=== PATIENT | male | born 1970 | race Caucasian/White ===

== ENCOUNTER 2017-06-25 14:32 | Emergency (ER) | payer BC, OTHER ==
[2017-06-25 15:22] VITALS: BP 140/92
--- NOTE | 2017-06-25 15:40 | UC ---
Back Pain HPI - HPI Summary HPI Summary: 46 y/o male presents to the urgent care c/o lower back pain after moving a cart this last Sunday06/23/2017. Pain is 6/10 at rest and 9/10 with movement, it radiates to the LF lateral side of his hip. Pt took a Meloxicam PO and Aleve PO this morning to alleviate symptoms. Pt denies numbness or tingling over his lower extremities, fecal or urinary incontinence, saddle anesthesia. fever, SOB , chest pain, N/V/D. Pt states he had similar symptoms a couple of years ago, but symptoms resolved. - History of Current Complaint Chief Complaint: UCBackPain Stated Complaint: LOW BACK PAIN Time Seen by Provider: 06/25/17 15:25 Hx Obtained From: Patient Onset/Duration: Sudden Onset, Lasting Days, Still Present Timing: Constant, Lasting Days Severity Initially: Moderate Severity Currently: Moderate Pain Intensity: 6 Pain Scale Used: 0-10 Numeric Back Pain: Is Discrete @ - lower back Character: Sharp, Spasmodic Aggravating: Movement, Lifting Alleviating: Rest Associated Signs And Symptoms: Positive: Negative. Negative: Swelling, Redness , Bruising, Fever, Weakness, Numbness, Tingling, Flank Pain, Bladder Incontinence, Bowel Incontinence - Risk Factors AAA Risk Factors: Negative TAD Risk Factors: Negative Cauda Equina Risk Factors: Negative Epidural Abscess Risk Factors: Negative - Allergies/Home Medications Allergies/Adverse Reactions: Allergies Allergy/AdvReac Type Severity Reaction Status Date / Time Pseudoephedrine Allergy Anxiety Verified 06/25/17 15:22 [From [facility]] PMH/Surg Hx/FS Hx/Imm Hx Previously Healthy: Yes - Surgical History Surgical History: Yes Surgery Procedure, Year, and Place: Umbilical Hernia repair - Family History Known Family History: Positive: Cardiac Disease, Hypertension - Social History Occupation: Employed Full-time Lives: With Family Alcohol Use: Rare Substance Use Type: None Smoking Status (MU): Never Smoked Tobacco Review of Systems Constitutional: Negative Skin: Negative Eyes: Negative ENT: Negative Respiratory: Negative Cardiovascular: Negative Gastrointestinal: Negative Genitourinary: Negative Motor: Negative Neurovascular: Negative Musculoskeletal: Other: - Lower back pain Neurological: Negative Psychological: Negative All Other Systems Reviewed And Are Negative: Yes Physical Exam Triage Information Reviewed: Yes Appearance: Well-Appearing, No Pain Distress, Well-Nourished Vital Signs: Initial Vital Signs Temp 98.1 F 06/25/17 15:19 Pulse 78 06/25/17 15:19 Resp 14 06/25/17 15:19 BP 140/92 06/25/17 15:19 Pulse Ox 99 06/25/17 15:19 Vital Signs Reviewed: Yes Eye Exam: Normal Eyes: Positive: Conjunctiva Clear - PERRLA, EOMI ENT Exam: Normal ENT: Positive: Normal ENT inspection, Hearing grossly normal, Pharynx normal, TMs normal Dental Exam: Normal Neck exam: Normal Neck: Positive: Supple, Nontender, No Lymphadenopathy Respiratory Exam: Normal Respiratory: Positive: Chest non-tender, Lungs clear, Normal breath sounds Cardiovascular Exam: Normal Cardiovascular: Positive: RRR, No Murmur, Pulses Normal, Brisk Capillary Refill Abdominal Exam: Normal Abdomen Description: Positive: Nontender, No Organomegaly, Soft. Negative: CVA Tenderness (R), CVA Tenderness (L) Bowel Sounds: Positive: Present Musculoskeletal: Positive: Strength Intact, No Edema, Other: - BACK: Patient walked into the urgent care room with symmetric ambulation, No signs of limping , antalgic, able to bear weight. No signs of trauma, No masses palpated. Point tenderness at the level of L5-S1, No CVAT, no flank ecchymosis . No sacroiliac notch tenderness, No saddle anesthesia.ROM: limited flexion/ extension/ lateral bending and rotation due to pain, Straight Leg Raise: positive. Positive paraspinal muscle spasm at the same level L-S1 Patellar reflexes: brisk, symmetric Muscle strength lower extremities intact. Lower extremities: Femoral , popliteal, posterior tibial, and dorsalis pedis pulses WNL Neurological Exam: Normal Psychological Exam: Normal Skin Exam: Normal Back Pain Course/Dx - Course Course Of Treatment: 46 y/o male presents to the urgent care c/o lower back pain after moving a cart this last Sunday06/23/2017. Pain is 6/10 at rest and 9/10 with movement, it radiates to the LF lateral side of his hip. Pt took a Meloxicam PO and Aleve PO this morning to alleviate symptoms. Pt denies numbness or tingling over his lower extremities, fecal or urinary incontinence, saddle anesthesia. fever, SOB, chest pain, N/V/D. Pt states he had similar symptoms a couple of years ago, but symptoms resolved. HX obtained. PE performed. Lubosacral X-ray ordered. X-ray read by radiologist. Impression: Straightening of lumbar lordosis L4-L5, L5-S, with mild degenerative Disc disease. Osteoarthritis. Pt Rx Flexeril PO to allaviate muscle spasm, Naproxen PO to alleviate pain, Advised to wear a back support at all time and avoid strenuous exercise or heavy lifting. F/u with Neurologist Dr Vo for further treatment. Pt's BP elevated today, advised to decrease salt in his diet and monitor BP at home and if it continues to be elevated to f/u with his PCP for further managment. Pt understood and agreed and left the clinic ambulating A& OX3. - Differential Dx/Diagnosis Differential Diagnosis/HQI/PQRI: Arthritis, Fracture, Herniated Disc, Osteoporosis, Renal Colic, Strain, Sprain Provider Diagnoses: 1- Acute lower back pain with back spasm. 2-Elevated Blood pressure w/o HX of HTN Discharge - Discharge Plan Condition: Stable Disposition: HOME Prescriptions: Cyclobenzaprine TAB* [Flexeril 10 MG TAB*] 10 mg PO TID PRN #15 tab PRN Reason: Spasms - Back Naproxen TAB* [Naprosyn 250 mg TAB*] 500 mg PO Q8H PRN #28 tab PRN Reason: Pain Patient Education Materials: Degenerative Disc Disease (ED), Back Pain (ED) Referrals: [facility] [Outside] Stan Vo MD [Medical Doctor] - Additional Instructions: 1- Please take medications after meals to alleviate pain and muscle spasm. Please wear a back support at all times. Avoid strenuous exercise or heavy lifting. rest for 1-2 days. F/u with the Back specialist for further management. 2-Your BP today is elevated. please decrease salt in your diet and monitor your BP at home, if it continues to be levated please f/u with your PC for further management
--- NOTE | 2017-06-25 15:59 | RAD ---
HISTORY: Low back pain, injury COMPARISONS: None VIEWS: 3 , Frontal, lateral, and coned-down lateral sacral views of the lumbar spine FINDINGS: ALIGNMENT: There is straightening of the normal lumbar lordosis. VERTEBRAL BODIES: The vertebral body heights are normal. The interpedicular distances are normal. There is mild anterolateral marginal osteophyte formation. JOINTS: There is facet hypertrophic change, most pronounced at L4-L5 and L5-S1 INTERVERTEBRAL DISCS: There is mild diffuse loss of intervertebral disc height. SOFT TISSUE: Unremarkable. OTHER: The pelvis is unremarkable. The lung bases are clear. IMPRESSION: 1. STRAIGHTENING OF THE LUMBAR LORDOSIS. 2. MILD DEGENERATIVE DISC DISEASE AND OSTEOARTHRITIS.
== END 2017-06-25 16:50 | disposition home or self-care (01) ==
LOC: UCCORT 14:32
DX: M54.5 Low back pain (principal); M62.830 Muscle spasm of back; R03.0 Elevated blood-pressure reading, without diagnosis of hypertension; Z88.8 Allergy status to other drugs, medicaments and biological substances
CPT/HCPCS: 72100; 99202; G0463

== ENCOUNTER 2018-10-02 13:24 | Emergency (ER) | payer OTHER ==
[2018-10-02 13:43] VITALS: BP 132/83
--- NOTE | 2018-10-02 13:57 | UC ---
Abdominal Pain Male HPI - HPI Summary HPI Summary: Pt with 5 days intermittent, now constant LLQ pain - worse with movement and BM. no fever, chills. n no back pain. No diarrhea, constipation. no blood, black stools. No testicular or penile pain. mild back pain. No rash. no trauma. no h/o similar. No previous colonoscopy./ No known h/o diverticulitis. No analgesia today. decreased appetite. mild nausea, no vomiting. Pt's medications reviewed this visit - History of Current Complaint Chief Complaint: UCAbdominalPain Stated Complaint: LOWER LEFT ABDOMINAL PAIN x5 DAYS Time Seen by Provider: 10/02/18 13:56 Hx Obtained From: Patient Onset/Duration: Gradual Onset Timing: Constant Severity Initially: Mild Pain Intensity: 5 - Allergies/Home Medications Allergies/Adverse Reactions: Allergies Allergy/AdvReac Type Severity Reaction Status Date / Time pseudoephedrine Allergy Anxiety Verified 10/02/18 13:39 PMH/Surg Hx/FS Hx/Imm Hx Previously Healthy: Yes - Surgical History Surgical History: Yes Surgery Procedure, Year, and Place: Umbilical Hernia repair - Family History Known Family History: Positive: Cardiac Disease, Hypertension - Social History Alcohol Use: Occasionally Substance Use Type: None Smoking Status (MU): Never Smoked Tobacco Review of Systems All Other Systems Reviewed And Are Negative: Yes Constitutional: Positive: Fatigue Gastrointestinal: Positive: Abdominal Pain, Nausea. Negative: Vomiting, Diarrhea Genitourinary: Negative: Dysuria, Vaginal/Penile Discharge Physical Exam - Summary Physical Exam Summary: Vital Signs Reviewed: Yes A+Ox3, congested, cough Eyes: Conjunctiva Clear, CAITLIN. EOM intact and full ENT: Hearing grossly normal TM x 2 mmoist, uvula midline, no exudate, no erythema Neck: Positive: Supple Respiratory: Positive: coarse cough, diffuse wheeze + BS throughout no increased WOB, no accessory muscles Cardiovascular: RRR nl s1, s2 no m/r CBT <2 sec abd soft + BS nt/nd no guarding, no distension unable to reproduce discomfort with direct, deep palpation. Musculoskeletal Exam: AGUILAR x 4 without difficulty Strength Intact, ROM Intact Neurological: Positive: Alert, + sensation throughout Psychological: Positive: Normal Response To Family Skin: Positive: no rash, no ecchymosis Triage Information Reviewed: Yes Vital Signs: Initial Vital Signs Temp 98.2 F 10/02/18 13:40 Pulse 63 11/28/18 13:40 Resp 16 10/02/18 13:40 BP 132/83 10/02/18 13:40 Pulse Ox 100 10/02/18 13:40 Abd Pain Male Course/Dx - Course Course Of Treatment: Pt presents with progressive LLQ pain pain x 5 days. Pain increases with BM. No tenesmus. No ho similar. No analgesia taken today. PT with nausea, no vomiting. VSS. On exam, pt with mild pallor. Unable to reproduce pain on exam. no previous CT imaging, nno know dx of diverticulosis. recomend pt to eD for labs and imaging. Pt comfortable and in agreement with plan. Hermelinda Oviedo NP - [facility] ED - aware pt coming POV - Differential Dx/Clinical Impression Provider Diagnosis: LLQ abdominal pain - Physician Notification/Consults Discussed Patient Care With: Hermelinda Oviedo NP Discharge - Sign-Out/Discharge Documenting (check all that apply): Patient Departure All imaging exams completed and their final reports reviewed: No Studies - Discharge Plan Condition: Stable Disposition: HOME-RECOMMEND TO ED Patient Education Materials: Acute Abdominal Pain (ED) Referrals: Curtis Parra MD [Primary Care Provider] - Additional Instructions: The doctor that evaluated you today thinks that you need additional testing that can be completed the emergency department. It is recommended that you go directly to emergency department for further evaluation. This evaluation may include blood work or imaging. This testing will be directed and decided by the provider that evaluate you at the emergency department. If pain becomes worse, you feel lightheaded, you have uncontrolled vomiting, or you have any other concerns while you are being driven to emergency department as recommended to pullover and contact 911. - Billing Disposition and Condition Condition: STABLE Disposition: Home-Recommend to ED
== END 2018-10-02 14:16 | disposition home health service (06) ==
LOC: UCCORT 13:24
DX: R10.32 Left lower quadrant pain (principal); R11.0 Nausea; R53.83 Other fatigue; Z88.8 Allergy status to other drugs, medicaments and biological substances
CPT/HCPCS: 81003; 99212; G0463

== ENCOUNTER 2019-11-26 19:55 | Emergency (ER) | payer OTHER ==
[2019-11-26 20:49] VITALS: BP 128/80
--- NOTE | 2019-11-26 21:05 | UC ---
Knee Pain HPI - HPI Summary HPI Summary: 49 male twisted his right knee today loading a snow mobile on a trailer knee swollen hard to go up stairs feels best when straight - History of Current Complaint Chief Complaint: UCLowerExtremity Stated Complaint: TWISTED RIGHT KNEE Time Seen by Provider: 11/26/19 20:44 Hx Obtained From: Patient Onset/Duration: Sudden Onset, Lasting Hours Severity Initially: Moderate Severity Currently: Moderate Pain Intensity: 7 Pain Scale Used: 0-10 Numeric Character: Sharp Aggravating Factor(s): Movement, Weight Bearing, Stairs Alleviating Factor(s): Rest Associated Signs And Symptoms: Positive: Negative Able to Bear Weight: Yes Legs: 1 - tender/swollen - Allergies/Home Medications Allergies/Adverse Reactions: Allergies Allergy/AdvReac Type Severity Reaction Status Date / Time pseudoephedrine Allergy Anxiety Verified 11/26/19 20:45 Home Medications: Home Medications Naproxen Sodium [Aleve] 4 tab PO ONCE 11/26/19 [History Confirmed 11/26/19] PMH/Surg Hx/FS Hx/Imm Hx Previously Healthy: Yes - Surgical History Surgical History: Yes Surgery Procedure, Year, and Place: Umbilical Hernia repair - Family History Known Family History: Positive: Cardiac Disease, Hypertension, Non-Contributory - Social History Alcohol Use: Occasionally Substance Use Type: None Smoking Status (MU): Never Smoked Tobacco Review of Systems All Other Systems Reviewed And Are Negative: Yes Constitutional: Positive: Negative Skin: Positive: Negative Eyes: Positive: Negative ENT: Positive: Negative Respiratory: Positive: Negative Cardiovascular: Positive: Negative Gastrointestinal: Positive: Negative Genitourinary: Positive: Negative Motor: Positive: Negative Neurovascular: Positive: Negative Musculoskeletal: Positive: Arthralgia Neurological: Positive: Negative Psychological: Positive: Negative Physical Exam Triage Information Reviewed: Yes Appearance: Well-Appearing, No Pain Distress, Well-Nourished Vital Signs: Initial Vital Signs Temp 97.4 F 11/26/19 20:45 Pulse 63 11/26/19 20:45 Resp 18 11/26/19 20:45 BP 128/80 11/26/19 20:45 Pulse Ox 100 11/26/19 20:45 Vital Signs Reviewed: Yes Eyes: Positive: Conjunctiva Clear ENT: Positive: Hearing grossly normal. Negative: Nasal congestion, Nasal drainage, Trismus, Muffled voice, Hoarse voice, Uvula midline Neck: Positive: Supple, Nontender, No Lymphadenopathy Respiratory: Positive: Lungs clear, Normal breath sounds, No respiratory distress, No accessory muscle use Cardiovascular: Positive: RRR, No Murmur Abdomen Description: Positive: Nontender, No Organomegaly Musculoskeletal: Positive: ROM Intact, Edema @, Other: - stable knee joint Neurological: Positive: Alert Psychological Exam: Normal Skin Exam: Normal Diagnostics - Radiology No standard instances Radiology Interpretation Completed By: ED Physician Summary of Radiographic Findings: mild djd Knee Pain Course/Dx - Differential Dx/Diagnosis Provider Diagnosis: Right knee injury Discharge ED - Sign-Out/Discharge Documenting (check all that apply): Patient Departure All imaging exams completed and their final reports reviewed: No - Discharge Plan Condition: Stable Disposition: HOME Patient Education Materials: Knee Pain (ED) Referrals: Jacob Naavrrete MD [Medical Doctor] - 1 Week (call and ask for a Matthieu appt ( Dakota Zeng)) Additional Instructions: ice twice daily knee immobilizer tylenol or advil for pain offical xr reading pending - Billing Disposition and Condition Condition: STABLE Disposition: Home
--- NOTE | 2019-11-27 08:01 | UC ---
- Progress Note Progress Note: Reviewed Dr. Shetty's review of right knee xray: no evidence of fracture, same as wet read. No change in management based on report. Course/Dx - Diagnoses Provider Diagnoses: Right knee injury Discharge ED - Sign-Out/Discharge Documenting (check all that apply): Patient Departure All imaging exams completed and their final reports reviewed: Yes - Discharge Plan Condition: Stable Disposition: HOME Patient Education Materials: Knee Pain (ED) Referrals: Jacob Navarrete MD [Medical Doctor] - 1 Week (call and ask for a Matthieu appt ( Dakota Zeng)) Additional Instructions: ice twice daily knee immobilizer tylenol or advil for pain offical xr reading pending - Billing Disposition and Condition Condition: STABLE Disposition: Home
== END 2019-11-26 21:32 | disposition home or self-care (01) ==
LOC: UCCORT 19:55
DX: S89.91XA Unspecified injury of right lower leg, initial encounter (principal); Z88.8 Allergy status to other drugs, medicaments and biological substances; X50.0XXA Overexertion from strenuous movement or load, initial encounter; Y92.9 Unspecified place or not applicable
CPT/HCPCS: 99212; G0463